=== PATIENT | male | born 2000 | race African-American/Black ===

== ENCOUNTER 2022-02-16 21:01 | Emergency (ER) | payer OTHER ==
[2022-02-16] MEDS ORDERED: Ibuprofen 800 MG TAB ONE (22:09)
== END 2022-02-16 22:15 | disposition left against medical advice (07) ==
LOC: MADERS 21:01
DX: M54.2 Cervicalgia (principal); R42 Dizziness and giddiness; R11.0 Nausea; V89.2XXA Person injured in unspecified motor-vehicle accident, traffic, initial encounter
CPT/HCPCS: 99284